=== PATIENT | male | born 1975 | race Caucasian/White ===

== ENCOUNTER 2017-08-22 21:27 | Emergency (ER) | payer OTHER ==
[~2017-08-22] VITALS: Ht 172.7 cm; Wt 79.4 kg
[~2017-08-22 21:27] MED LIST: IBUPROFEN600 MG ORAL; KEFLEX500 MG ORAL
[2017-08-22 21:45] VITALS: BP 132/85
[2017-08-22] MEDS ORDERED: Augmentin 875mg Tab ORAL ONE (22:00)
[2017-08-22] MEDS ORDERED: Lidocaine 1% MPF 10mg/ml 5ml IM ONE (22:00)
[2017-08-22] MEDS ORDERED: Hydrogen Peroxide 473ml Bottle TOPIC ONE (22:00)
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
[2017-08-22 23:45] VITALS: BP 130/81
[2017-08-23] MEDS ORDERED: AUGMENTIN 875-1 EAC1 ORAL (00:19)
[2017-08-23] MEDS ORDERED: IBUPROFEN600 MG ORAL (00:19)
[2017-08-23] MEDS ORDERED: Bacitracin Oint UD TOPIC ONE (00:30)
[2017-08-23 00:40] VITALS: BP 130/81
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
== END 2017-08-23 00:40 | disposition home or self-care (01) ==
LOC: EMR 21:50
DX: S01.511A Laceration without foreign body of lip, initial encounter (principal); S01.81XA Laceration without foreign body of other part of head, initial encounter; Y04.2XXA Assault by strike against or bumped into by another person, initial encounter; Y92.9 Unspecified place or not applicable
CPT/HCPCS: 70486; 96372; 99284